=== PATIENT | male | born 1995 | race American Indian/Alaskan Native ===

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

== ENCOUNTER 2019-03-24 21:02 | Emergency (ER) | payer MEDICAID, OTHER ==
[2019-03-24] MEDS ORDERED: hydrOXYzine HCl 25 MG Tab PO ONE (21:26)
[2019-03-24 21:56] VITALS: BP 141/99; PULSE 73
--- NOTE | 2019-03-24 22:29 | EDM.PDOCBH ---
ED HPI GENERAL MEDICAL PROBLEM - General Chief Complaint: Behavioral/Psych Stated Complaint: ANXIETY ATTACK Time Seen by Provider: 03/24/19 22:23 Source of Information: Reports: Patient History Limitations: Reports: No Limitations - History of Present Illness INITIAL COMMENTS - FREE TEXT/NARRATIVE: C/o Panic attack [employer], some better now. Admits not filling medications of lexapro and hydroxyzine for past 3 weeks, Clinic appointment next week. Lots on mind tonight and maybe to much " caffeine", denies tobacco use No drugs or alcohol. - Related Data Allergies Allergy/AdvReac Type Severity Reaction Status Date / Time No Known Allergies Allergy Verified 03/24/19 21:10 Home Meds: Home Meds Escitalopram Oxalate [Lexapro] 20 mg PO DAILY 03/24/19 [History] hydrOXYzine HCL [Hydroxyzine HCl] 25 mg PO ASDIRECTED PRN 03/24/19 [History] Past Medical History - Past Health History Medical/Surgical History: Denies Medical/Surgical History Psychiatric History: Reports: Anxiety, Depression Dermatologic History: Reports: Eczema Social & Family History - Family History Family Medical History: Noncontributory - Tobacco Use Smoking Status *Q: Unknown Ever Smoked - Caffeine Use Caffeine Use: Reports: Coffee - Recreational Drug Use Recreational Drug Use: No ED ROS GENERAL - Review of Systems Review Of Systems: Comprehensive ROS is negative, except as noted in HPI. ED EXAM, BEHAVIORAL HEALTH - Physical Exam Exam: See Below Exam Limited By: No Limitations General Appearance: Alert, No Apparent Distress Ears: Normal External Exam, Normal TMs Nose: Normal Inspection Throat/Mouth: Normal Inspection Head: Atraumatic, Normocephalic Neck: Normal Inspection, Full Range of Motion Respiratory/Chest: No Respiratory Distress Cardiovascular: Normal Peripheral Pulses, Regular Rate, Rhythm GI/Abdominal: Normal Bowel Sounds Neurological: Alert, Normal Mood/Affect Psychiatric: Alert, Flat Affect, Poor Eye Contact. No: Restless, Agitated Skin Exam: Warm, Dry, Rash (psoriatic patches to forehead) COURSE, BEHAVIORAL HEALTH COMP - Course Vital Signs: Last Vital Signs Temp 98.5 F 03/24/19 21:52 Pulse 73 03/24/19 21:52 Resp 18 03/24/19 21:52 BP 141/99 H 03/24/19 21:52 Pulse Ox 96 03/24/19 21:52 Orders, Labs, Meds: Laboratory Tests 03/24/19 03/24/19 Range/Units 21:32 21:32 Urine Color Yellow (YELLOW) Urine Appearance Clear (CLEAR) Urine pH 7.0 (5.0-9.0) Ur Specific Dix 1.015 (1.005-1.030) Urine Protein Negative (NEGATIVE) Urine Glucose (UA) Negative (NEGATIVE) Urine Ketones Negative (NEGATIVE) Urine Occult Blood Negative (NEGATIVE) Urine Nitrite Negative (NEGATIVE) Urine Bilirubin Negative (NEGATIVE) Urine Urobilinogen 0.2 (0.2-1.0) mg/dL Ur Leukocyte Esterase Negative (NEGATIVE) Urine Opiates Screen Negative (NEGATIVE) Ur Oxycodone Screen Negative (NEGATIVE) Urine Methadone Screen Negative (NEGATIVE) Ur Barbiturates Screen Negative (NEGATIVE) U Tricyclic Antidepress Negative (NEGATIVE) Ur Phencyclidine Scrn Negative (NEGATIVE) Ur Amphetamine Screen Negative (NEGATIVE) U Methamphetamines Scrn Negative (NEGATIVE) Urine MDMA Screen Negative (NEGATIVE) U Benzodiazepines Scrn Negative (NEGATIVE) Urine Cocaine Screen Negative (NEGATIVE) U Marijuana (THC) Screen Negative (NEGATIVE) Medications Discontinued Medications Generic Name Dose Route Start Last Admin Trade Name Freq PRN Reason Stop Dose Admin Hydroxyzine HCl 50 mg 03/24/19 21:26 03/24/19 22:03 Atarax PO 03/24/19 21:27 50 mg ONETIME ONE Administration Departure - Departure Time of Disposition: 22:26 Disposition: Home, Self-Care 01 Condition: Good Clinical Impression: Panic disorder [episodic paroxysmal anxiety] - Discharge Information *PRESCRIPTION DRUG MONITORING PROGRAM REVIEWED*: No *COPY OF PRESCRIPTION DRUG MONITORING REPORT IN PATIENT GENI: No Instructions: Living With Anxiety Additional Instructions: follow up with primary care for medication renewal limit caffeine use Sepsis Event Note - Evaluation Sepsis Screening Result: No Definite Risk - Focused Exam Vital Signs: Vital Signs Temp Pulse Resp BP Pulse Ox 03/24/19 21:52 98.5 F 73 18 141/99 H 96 Date Exam was Performed: 03/24/19 Time Exam was Performed: 22:24
== END 2019-03-24 22:55 | disposition home or self-care (01) ==
LOC: DL.ED 21:02
DX: F41.0 Panic disorder [episodic paroxysmal anxiety] (principal)
CPT/HCPCS: 80305; 81003; 99283; A9270

== ENCOUNTER 2021-10-10 21:42 | Emergency (ER) | payer MEDICAID, OTHER ==
[2021-10-10] MEDS ORDERED: GI Cocktail Oral Solution 30 ML PO ONE (21:58)
[2021-10-10 22:28] LABS: ANION GAP 15.1 mEq/L (7-13); CHLORIDE,CL 101 mmol/L (98-107); SODIUM,NA 138 mmol/L (136-145)
[2021-10-10 22:32] LABS: AMPHETAMINES,URINE NEGATIVE (NEGATIVE); BARBITURATES,URINE NEGATIVE (NEGATIVE); BENZODIAZEPINE,URINE NEGATIVE (NEGATIVE); MDMA (ECSTASY), URINE NEGATIVE (NEGATIVE); METHADONE,URINE NEGATIVE (NEGATIVE); METHAMPHETAMINES,URINE NEGATIVE (NEGATIVE); OPIATES,URINE NEGATIVE (NEGATIVE); OXYCODONE,URINE NEGATIVE (NEGATIVE); PHENCYCLIDINE,URINE NEGATIVE (NEGATIVE); TCA,URINE NEGATIVE (NEGATIVE)
[2021-10-10 22:55] LABS: ESTIMATED GFR 118 mL/min (>=60)
[2021-10-10 23:21] VITALS: BP 141/91; PULSE 82
== END 2021-10-10 23:21 | disposition home or self-care (01) ==
LOC: DL.ED 21:42
DX: K21.9 Gastro-esophageal reflux disease without esophagitis (principal); F41.9 Anxiety disorder, unspecified; F32.A Depression, unspecified; Z79.899 Other long term (current) drug therapy
CPT/HCPCS: 36415; 71045; 80053; 80305-QW; 80307; 81003; 84484; 85025; 93005; 93010; 99283; 99285; A9270-GY

== ENCOUNTER 2022-01-16 21:36 | Emergency (ER) | payer MEDICAID ==
[2022-01-16 21:55] VITALS: BP 130/92; PULSE 81
== END 2022-01-16 22:07 | disposition home or self-care (01) ==
LOC: DL.ED 21:36
DX: S61.211A Laceration without foreign body of left index finger without damage to nail, initial encounter (principal); Z88.8 Allergy status to other drugs, medicaments and biological substances; W26.0XXA Contact with knife, initial encounter
CPT/HCPCS: 99282

== ENCOUNTER 2022-01-30 17:51 | Emergency (ER) | payer MEDICAID ==
[2022-01-30 18:52] VITALS: BP 123/82; PULSE 90
[2022-02-06 12:46] LABS: C.TRACHOMATIS BY TMA Negative (Negative); N.GONORRHOEAE BY TMA Negative (Negative)
== END 2022-01-30 20:03 | disposition home or self-care (01) ==
LOC: DL.ED 17:51
DX: R35.0 Frequency of micturition (principal); Z88.8 Allergy status to other drugs, medicaments and biological substances
CPT/HCPCS: 36415; 81003; 82947; 87491; 87563; 87591; 99283

== ENCOUNTER 2022-03-21 07:07 | Emergency (ER) | payer MEDICAID ==
[2022-03-21] MEDS ORDERED: Sodium Chloride 0.9% 10 ML Syringe FLUSH PRN (07:30)
[2022-03-21] MEDS ORDERED: Famotidine 20 MG/2 ML SDV IVPUSH ONE (07:31)
[2022-03-21 07:51] VITALS: BP 105/72; PULSE 92
[2022-03-21 08:19] LABS: ANION GAP 17.7 mEq/L (7-13); CHLORIDE,CL 102 mmol/L (98-107); SODIUM,NA 139 mmol/L (136-145)
[2022-03-21 08:29] LABS: ESTIMATED GFR 129 mL/min (>=60)
[2022-03-21] MEDS ORDERED: Ondansetron 4 MG/2 ML SDV IV ONE (08:31)
[2022-03-21] MEDS ORDERED: Sodium Chloride 0.9% 1,000 ML IV ONE (08:31)
[2022-03-21] MEDS ORDERED: HYDROmorphone 1 MG/ML Syringe IVPUSH ONE (08:31)
[2022-03-21] MEDS ORDERED: Iopamidol 612 MG/ML 100 ML Bottle IVPUSH ONE (08:32)
== END 2022-03-21 11:13 | disposition home or self-care (01) ==
LOC: DL.ED 07:07
DX: K85.90 Acute pancreatitis without necrosis or infection, unspecified (principal); Z88.8 Allergy status to other drugs, medicaments and biological substances
CPT/HCPCS: 36415; 74177; 80053; 82150; 83605; 83690; 85025; 96361; 96374; 96375; 99284-25; J1170; J2405; J3490; J7030; Q9967

== ENCOUNTER 2022-10-27 14:19 | Emergency (ER) | payer MEDICAID ==
[2022-10-27] MEDS ORDERED: Ondansetron 4 MG Tab.DIS PO ONE (15:07)
[2022-10-27] MEDS ORDERED: Dicyclomine 20 MG/2 ML SDV IM ONE (15:07)
[2022-10-27 15:08] VITALS: BP 135/77; PULSE 92
[2022-10-27 15:24] LABS: BASOPHILS PERCENT AUTO 0.6 % (0.0-1.0); EOSINOPHILS PERCENT AUTO 2.6 % (1.0-3.0); HEMATOCRIT 46.1 % (40.0-54.0); HEMOGLOBIN 15.7 g/dL (14.0-18.0); LYMPHOCYTES PERCENT AUTO 11.2 % (20.5-50.1); MEAN CORPUSCULAR HGB CONC 34.1 g/dL (33.0-35.0); MONOCYTES PERCENT AUTO 7.6 % (2-8); PLATELET COUNT,PLT 206 10^3/uL (150-450); RED BLOOD CELL COUNT 5.24 10^6/uL (4.6-6.2)
[2022-10-27 15:41] LABS: ANION GAP 12.2 mEq/L (7-13); CALCIUM 8.9 mg/dL (8.5-10.1); CREATININE 0.79 mg/dL (0.70-1.30); EST CRCL DRUG DOSING (CG) 152.24 mL/min; POTASSIUM,K 4.2 mmol/L (3.5-5.1)
[2022-10-27 16:32] LABS: APPEARANCE,URINE CLEAR (CLEAR); BILIRUBIN,URINE NEGATIVE (NEGATIVE); COLOR,URINE YELLOW (YELLOW); GLUCOSE,URINE NEGATIVE (NEGATIVE); KETONES,URINE 15 (NEGATIVE); LEUKOCYTE ESTERASE,URINE NEGATIVE (NEGATIVE); NITRITE,URINE NEGATIVE (NEGATIVE); OCCULT BLOOD,URINE NEGATIVE (NEGATIVE); PH,URINE 5.5 (5.0-9.0); PROTEIN,URINE NEGATIVE (NEGATIVE); UROBILINOGEN,URINE 0.2 mg/dL (0.2-1.0)
[2022-10-27] MEDS ORDERED: Take Home: Ondansetron 4 MG Tab.DIS, 5 Tab Pack PO ONE (16:52)
== END 2022-10-27 17:00 | disposition home or self-care (01) ==
LOC: DL.ED 14:19
DX: K52.9 Noninfective gastroenteritis and colitis, unspecified (principal); Z88.8 Allergy status to other drugs, medicaments and biological substances
CPT/HCPCS: 36415; 80048; 81003; 85025; 96372; 99283; 99284; A9270-GY; J0500; Q0162

== ENCOUNTER 2024-05-22 15:35 | Emergency (ER) | payer MEDICAID, OTHER ==
[~2024-05-22 15:35] MED LIST: Iopamidol 612 MG/ML 100 ML Bottle IVPUSH ONE; Midazolam 1 MG/ML 2 ML SDV IVPUSH ONE; Midazolam 1 MG/ML 2 ML SDV ONE; Sodium Chloride 0.9% 10 ML Syringe FLUSH PRN
[2024-05-22 15:39] LABS: BASOPHILS PERCENT AUTO 0.4 % (0.0-1.0); EOSINOPHILS PERCENT AUTO 1.7 % (1.0-3.0); HEMATOCRIT 49.5 % (40.0-54.0); LYMPHOCYTES PERCENT AUTO 20.5 % (20.5-50.1); MEAN CORPUSCULAR HEMOGLOBIN 29.3 pg (27.0-34.0); MEAN CORPUSCULAR HGB CONC 34.3 g/dL (33.0-35.0); MEAN CORPUSCULAR VOLUME 85.2 fL (80-100); MONOCYTES PERCENT AUTO 7.3 % (2-8); NEUTROPHILS PERCENT AUTO 70.1 % (42.2-75.2); PLATELET COUNT,PLT 247 10^3/uL (150-450); RED BLOOD CELL COUNT 5.81 10^6/uL (4.6-6.2); WHITE BLOOD CELL COUNT,WBC 10.9 10^3/uL (5.0-10.0)
[2024-05-22] MEDS ORDERED: Midazolam 1 MG/ML 2 ML SDV ONE (15:44)
[2024-05-22 15:55] LABS: A/G RATIO 1.3; ALANINE AMINOTRANSFERASE,ALT 23 U/L (16-63); ALBUMIN 4.4 g/dL (3.4-5.0); ALKALINE PHOSPHATASE 61 U/L (46-116); ASPARTATE AMNIOTRANSFERASE,AST 22 U/L (15-37); BILIRUBIN TOTAL 0.6 mg/dL (0.2-1.0); BLOOD UREA NITROGEN,BUN 12 mg/dL (7-18); BUN/CREATININE RATIO 11.2 (No establ ref range); CALCIUM 9.9 mg/dL (8.5-10.1); CARBON DIOXIDE,CO2 20 mmol/L (21-32); CHLORIDE,CL 104 mmol/L (98-107); CREATININE 1.07 mg/dL (0.70-1.30); GLUCOSE RANDOM 191 mg/dL (70-99); MAGNESIUM 1.6 mg/dL (1.8-2.4); PROTEIN TOTAL,TP 7.8 g/dL (6.4-8.2); SODIUM,NA 141 mmol/L (136-145)
[2024-05-22 15:57] LABS: ESTIMATED GFR 98 mL/min (>=60)
[2024-05-22] MEDS ORDERED: fentaNYL 250 MCG/5 ML SDV ONE (16:04)
[2024-05-22 16:25] LABS: APPEARANCE,URINE CLEAR (CLEAR); BILIRUBIN,URINE NEGATIVE (NEGATIVE); COLOR,URINE YELLOW (YELLOW); GLUCOSE,URINE NEGATIVE (NEGATIVE); KETONES,URINE 40 (NEGATIVE); LEUKOCYTE ESTERASE,URINE NEGATIVE (NEGATIVE); NITRITE,URINE NEGATIVE (NEGATIVE); OCCULT BLOOD,URINE NEGATIVE (NEGATIVE); PH,URINE 5.5 (5.0-9.0); PROTEIN,URINE 30 (NEGATIVE); UROBILINOGEN,URINE 0.2 mg/dL (0.2-1.0)
[2024-05-22] MEDS ORDERED: Potassium Chloride 20 MEQ in Premix Bag 1 BAG IV ONE (16:28)
[2024-05-22 16:29] LABS: AMPHETAMINES,URINE NEGATIVE (NEGATIVE); BARBITURATES,URINE NEGATIVE (NEGATIVE); BENZODIAZEPINE,URINE NEGATIVE (NEGATIVE); MDMA (ECSTASY), URINE NEGATIVE (NEGATIVE); METHADONE,URINE NEGATIVE (NEGATIVE); METHAMPHETAMINES,URINE NEGATIVE (NEGATIVE); OPIATES,URINE NEGATIVE (NEGATIVE); OXYCODONE,URINE NEGATIVE (NEGATIVE); PHENCYCLIDINE,URINE NEGATIVE (NEGATIVE); TCA,URINE NEGATIVE (NEGATIVE)
[2024-05-22 16:34] LABS: AMORPHOUS SEDIMENT,URINE RARE /HPF (NOT SEEN); BACTERIA,URINE RARE /HPF (0-FEW/HPF); EPITHELIAL CELLS,URINE FEW /HPF (NOT SEEN); MUCUS,URINE RARE /LPF (NOT SEEN); RBC,URINE 0-5 /HPF (0-5); WBC,URINE 0-5 /HPF (0-5/HPF)
== END 2024-05-22 17:07 ==
LOC: DL.ED 15:35
DX: S06.6XAA Traumatic subarachnoid hemorrhage with loss of consciousness status unknown, initial encounter (principal); S06.5XAA Traumatic subdural hemorrhage with loss of consciousness status unknown, initial encounter; Z88.6 Allergy status to analgesic agent; Z79.899 Other long term (current) drug therapy; V89.2XXA Person injured in unspecified motor-vehicle accident, traffic, initial encounter
CPT/HCPCS: 31500; 36410; 36415; 51702; 70450; 71045; 72125; 80053; 80305-QW; 80307; 81001; 83735; 85025; 96365; 99285; 99285-25

== ENCOUNTER 2024-06-05 13:24 | Emergency (ER) | payer OTHER ==
[2024-06-05] MEDS: Acetaminophen 500 MG Tab PO ONE (14:04)
[2024-06-05 14:32] VITALS: BP 125/65; PULSE 80
== END 2024-06-05 14:12 | disposition home or self-care (01) ==
LOC: DL.ED 13:24
DX: G44.89 Other headache syndrome (principal); Z79.899 Other long term (current) drug therapy; Z87.820 Personal history of traumatic brain injury; Z88.6 Allergy status to analgesic agent
CPT/HCPCS: 99283; 99284; A9270

== ENCOUNTER 2024-06-06 12:55 | Emergency (ER) | payer OTHER ==
[2024-06-06] MEDS: Prochlorperazine 5 MG Tab PO ONE (13:28)
[2024-06-06] MEDS: diphenhydrAMINE 25 MG Tab PO ONE (13:28)
[2024-06-06] MEDS: Acetaminophen 500 MG Tab PO ONE (13:28)
== END 2024-06-06 14:37 | disposition home or self-care (01) ==
LOC: DL.ED 12:55
DX: G44.89 Other headache syndrome (principal); Z86.79 Personal history of other diseases of the circulatory system; Z79.899 Other long term (current) drug therapy; Z79.1 Long term (current) use of non-steroidal anti-inflammatories (NSAID); Z88.6 Allergy status to analgesic agent
CPT/HCPCS: 70450; 99284; A9270; Q0164